=== PATIENT | female | born 1940 | race Caucasian/White ===

== ENCOUNTER → 2016-12-06 | Outpatient (CLI) | payer MEDICARE, BC ==
[~2016-12-06] MED LIST: HYDROCHLOROTHIA25 MG PO; KEFLEX500 MG PO; LATANOPROST2.5 ML OU; LEVOTHYROXINE112 MCG PO; VIBRAMYCIN100 M1 PO
--- NOTE | ~2016-12-06 | US85 ---
[facility] A Service of [facility] & [facility] RADIOLOGY TEXT RESULTS PATIENT: JOB MCCRAYR LOCATION: CNIV : 44 UNIT #: [id number] AGE: [address]: Angel Wayne MD SEX: F ORDER DR: [id number] [facility] [address] [place], [place] [address] [id number] MR#: [id number] Acc #: [id number] NAME: JOB MCCRARY. : 1940 SEX: F STUDY DATE/TIME: 12/06/2016 13:44 UNIT: CNIV ROOM: STUDY DESCRIPTION: [facility] Attending Physician: Angel Wayne M.D. Referring Physician: Angel Wayne M.D. Ordering Physician: Angel Wayne M.D. Primary Care Physician: Angel Wayne M.D. MEDICAL IMAGING REPORT This report is preliminary unless electronic signature is present EXAM Left lower extremity venous duplex, 12/06/2016. HISTORY Left lower extremity pain and edema in calf and ankle for 2 months, worsening in the last day. Evaluate for deep vein thrombosis. TECHNIQUE Venous ultrasound examination of the left lower extremity was performed using grayscale, spectral Doppler and color flow Doppler imaging. FINDINGS The examination is negative. There is no evidence of left lower extremity deep venous thrombus from the groin to the lower calf. Visualized greater saphenous vein is also patent. IMPRESSION Negative examination. No evidence of left lower extremity deep venous thrombosis. Dictated by... Zurdo Arizmendi M.D. THIS IS AN ELECTRONICALLY VERIFIED REPORT Zurdo Arizmendi M.D. at 12/07/2016 8:39 AM NAT/mehul TD: 12/06/2016 16:01 JOB #: [id number] MEDICAL IMAGING REPORT Page 1 of 1 COPY
== END | disposition home or self-care (01) ==
LOC: CNIV 13:35
DX: M79.605 Pain in left leg (principal); R50.9 Fever, unspecified; R21 Rash and other nonspecific skin eruption
CPT/HCPCS: 93971